=== PATIENT | male | born 1950 | race Caucasian/White ===

== ENCOUNTER 2023-03-16 14:28 | Inpatient (IN) | payer MEDICARE ==
[2023-03-16] MEDS ORDERED: Ondansetron 4 MG/2 ML SDV IV PRN (14:36)
[2023-03-16] MEDS ORDERED: Sennosides/Docusate Sodium 50-8.6 MG Tab PO PRN (14:36)
[2023-03-16] MEDS ORDERED: Sodium Chloride 0.9% 10 ML Syringe FLUSH PRN (14:36)
[2023-03-16 15:01] LABS: BASOPHILS ABSOLUTE AUTO 0.03 K/uL (0.00-0.10); BASOPHILS PERCENT AUTO 0.2 % (0.1-1.3); HEMATOCRIT 40.7 % (38.4-49.7); IMMATURE GRAN ABSOLUTE AUTO 0.06 K/uL (0.00-0.23); IMMATURE GRAN PERCENT AUTO 0.4 % (0.0-0.7); LYMPHOCYTES ABSOLUTE AUTO 0.63 K/uL (0.8-3.3); LYMPHOCYTES PERCENT AUTO 4.7 % (11.4-47.7); MEAN CORPUSCULAR HEMOGLOBIN 31.5 pg (31.6-35.5); MEAN CORPUSCULAR HGB CONC 34.4 g/dL (31.6-35.5); MEAN CORPUSCULAR VOLUME 91.5 fL (81.4-99.0); MONOCYTES ABSOLUTE AUTO 1.15 K/uL (0.20-0.90); MONOCYTES PERCENT AUTO 8.6 % (3.3-12.6); NEUTROPHILS ABSOLUTE AUTO 11.54 K/uL (1.0-7.6); NEUTROPHILS PERCENT AUTO 86.1 % (40.0-78.1); PLATELET COUNT,PLT 215 K/uL (130-375); RED BLOOD CELL COUNT 4.45 M/uL (4.14-5.76); WHITE BLOOD CELL COUNT,WBC 13.4 K/uL (3.2-11.0)
[2023-03-16 15:22] LABS: A/G RATIO 0.9 (1.2-2.2); ALANINE AMINOTRANSFERASE,ALT 21 U/L (12-78); ALBUMIN 3.3 g/dL (3.4-5.0); ALKALINE PHOSPHATASE 84 U/L (46-116); ASPARTATE AMNIOTRANSFERASE,AST 24 U/L (15-37); BILIRUBIN TOTAL 0.7 mg/dL (0.2-1.0); BLOOD UREA NITROGEN,BUN 54 mg/dL (7-18); CALCIUM 8.8 mg/dL (8.5-10.1); CARBON DIOXIDE,CO2 24 mmol/L (21-32); CHLORIDE,CL 97 mmol/L (100-108); ESTIMATED GFR 11 mL/min (>60); GLUCOSE RANDOM 105 mg/dL (74-106); MAGNESIUM 2.4 mg/dL (1.8-2.4); POTASSIUM,K 4.5 mmol/L (3.6-5.2); PROTEIN TOTAL,TP 6.8 g/dL (6.4-8.2); SODIUM,NA 132 mmol/L (140-148)
[2023-03-16 15:25] LABS: ANION GAP 15.5 mmol/L (5.0-14.0)
[2023-03-16 15:26] LABS: CREATININE 5.2 mg/dL (0.8-1.3)
[2023-03-16] MEDS: cefTRIAXone 1 GM in Sodium Chloride 0.9% 50 ML IV SCH (15:54)
[2023-03-16] MEDS: Acetaminophen 325 MG Tab PO PRN ×2 (17:34→21:41)
[2023-03-16] MEDS: Sodium Chloride 0.9% 1,000 ML IV SCH (20:05)
[2023-03-16] MEDS ORDERED: Sodium Chloride 0.9% 500 ML IV ONE (21:35)
[2023-03-16] MEDS: Latanoprost 0.005% Ophth Soln 2.5 ML Bottle EYEBOTH SCH (21:41)
[2023-03-17 04:52] LABS: BASOPHILS ABSOLUTE AUTO 0.04 K/uL (0.00-0.10); BASOPHILS PERCENT AUTO 0.5 % (0.1-1.3); EOSINOPHILS PERCENT AUTO 0.2 % (0.0-5.4); HEMATOCRIT 35.4 % (38.4-49.7); IMMATURE GRAN ABSOLUTE AUTO 0.11 K/uL (0.00-0.23); IMMATURE GRAN PERCENT AUTO 1.3 % (0.0-0.7); LYMPHOCYTES ABSOLUTE AUTO 0.78 K/uL (0.8-3.3); LYMPHOCYTES PERCENT AUTO 9.3 % (11.4-47.7); MEAN CORPUSCULAR HEMOGLOBIN 31.4 pg (31.6-35.5); MEAN CORPUSCULAR HGB CONC 33.9 g/dL (31.6-35.5); MEAN CORPUSCULAR VOLUME 92.7 fL (81.4-99.0); MONOCYTES PERCENT AUTO 10.8 % (3.3-12.6); NEUTROPHILS ABSOLUTE AUTO 6.52 K/uL (1.0-7.6); NEUTROPHILS PERCENT AUTO 77.9 % (40.0-78.1); PLATELET COUNT,PLT 193 K/uL (130-375); RED BLOOD CELL COUNT 3.82 M/uL (4.14-5.76); WHITE BLOOD CELL COUNT,WBC 8.4 K/uL (3.2-11.0)
[2023-03-17 05:11] LABS: EOSINOPHILS ABSOLUTE AUTO 0.02 K/uL (0.00-0.40)
[2023-03-17 05:14] LABS: ANION GAP 10.4 mmol/L (5.0-14.0); EST CRCL DRUG DOSING (CG) 18.88 mL/min; POTASSIUM,K 4.1 mmol/L (3.6-5.2)
[2023-03-17 05:22] LABS: CREATININE 3.6 mg/dL (0.8-1.3)
[2023-03-17] MEDS ORDERED: Sodium Chloride 0.9% 500 ML IV ONE (05:45)
[2023-03-17] MEDS: Sodium Chloride 0.9% 1,000 ML IV SCH ×4 (07:50→20:09)
[2023-03-17] MEDS: Timolol Maleate 0.5% Ophth Soln 5 ML Bottle EYEBOTH SCH (08:37)
[2023-03-17] MEDS ORDERED: Sodium Chloride 0.9% 1,000 ML IV SCH ×3 (12:30→14:30)
[2023-03-17] MEDS: Acetaminophen 325 MG Tab PO PRN ×2 (13:03→20:18)
[2023-03-17] MEDS: Finasteride 5 MG Tab PO SCH (13:04)
[2023-03-17] MEDS: cefTRIAXone 1 GM in Sodium Chloride 0.9% 50 ML IV SCH (16:22)
[2023-03-17] MEDS: Latanoprost 0.005% Ophth Soln 2.5 ML Bottle EYEBOTH SCH (20:17)
[2023-03-17] MEDS: Tamsulosin 0.4 MG Cap.ER PO SCH (20:18)
[2023-03-18] MEDS: Sodium Chloride 0.9% 1,000 ML IV SCH ×2 (02:22→08:31)
[2023-03-18 04:59] LABS: CALCIUM 7.5 mg/dL (8.5-10.1); CREATININE 1.8 mg/dL (0.8-1.3); EST CRCL DRUG DOSING (CG) 37.71 mL/min; POTASSIUM,K 3.6 mmol/L (3.6-5.2)
[2023-03-18 05:16] LABS: ANION GAP 14.6 mmol/L (5.0-14.0)
[2023-03-18] MEDS: Acetaminophen 325 MG Tab PO PRN ×2 (07:11→14:59)
[2023-03-18] MEDS: Timolol Maleate 0.5% Ophth Soln 5 ML Bottle EYEBOTH SCH (08:15)
[2023-03-18] MEDS: Finasteride 5 MG Tab PO SCH (08:16)
[2023-03-18] MEDS ORDERED: Sodium Chloride 0.9% 1,000 ML IV SCH ×3 (10:00→23:30)
[2023-03-18] MEDS ORDERED: Potassium Chloride 20 MEQ Tab.ER PO ONE ×2 (10:30→17:00)
[2023-03-18] MEDS: buPROPion 100 MG Tab PO SCH ×2 (10:50→20:05)
[2023-03-18] MEDS: Latanoprost 0.005% Ophth Soln 2.5 ML Bottle EYEBOTH SCH (20:05)
[2023-03-18] MEDS: Tamsulosin 0.4 MG Cap.ER PO SCH (20:05)
[2023-03-18] MEDS ORDERED: Lisinopril 5 MG Tab PO ONE (23:28)
[2023-03-19] MEDS ORDERED: Sodium Chloride 0.9% 1,000 ML IV SCH (02:30)
[2023-03-19] MEDS: Acetaminophen 325 MG Tab PO PRN ×4 (04:03→22:18)
[2023-03-19 05:30] LABS: CALCIUM 7.5 mg/dL (8.5-10.1); CREATININE 1.3 mg/dL (0.8-1.3); EST CRCL DRUG DOSING (CG) 52.18 mL/min; POTASSIUM,K 3.6 mmol/L (3.6-5.2)
[2023-03-19 05:31] LABS: ANION GAP 14.6 mmol/L (5.0-14.0)
[2023-03-19] MEDS ORDERED: Potassium Chloride 20 MEQ Tab.ER PO ONE (08:20)
[2023-03-19] MEDS: Finasteride 5 MG Tab PO SCH (08:30)
[2023-03-19] MEDS: buPROPion 100 MG Tab PO SCH ×2 (08:30→20:13)
[2023-03-19] MEDS: Timolol Maleate 0.5% Ophth Soln 5 ML Bottle EYEBOTH SCH (08:31)
[2023-03-19] MEDS: Tamsulosin 0.4 MG Cap.ER PO SCH (20:13)
[2023-03-19] MEDS: Latanoprost 0.005% Ophth Soln 2.5 ML Bottle EYEBOTH SCH (20:13)
[2023-03-20] MEDS: Acetaminophen 325 MG Tab PO PRN (05:37)
[2023-03-20 06:04] LABS: ANION GAP 9.2 mmol/L (5.0-14.0); CALCIUM 8.1 mg/dL (8.5-10.1); CREATININE 1.3 mg/dL (0.8-1.3); EST CRCL DRUG DOSING (CG) 52.7 mL/min; POTASSIUM,K 3.9 mmol/L (3.6-5.2)
[2023-03-20] MEDS: Finasteride 5 MG Tab PO SCH (09:18)
[2023-03-20] MEDS: Timolol Maleate 0.5% Ophth Soln 5 ML Bottle EYEBOTH SCH (09:18)
[2023-03-20] MEDS: buPROPion 100 MG Tab PO SCH (09:18)
== END 2023-03-20 11:00 | disposition home or self-care (01) | DRG 690 ==
LOC: JP.MS 14:28
PROVIDERS: ADMIT Hospitalist; ATTEND Hospitalist
DX: N39.0 Urinary tract infection, site not specified (principal); N17.9 Acute kidney failure, unspecified; N40.1 Benign prostatic hyperplasia with lower urinary tract symptoms; N13.8 Other obstructive and reflux uropathy; R97.20 Elevated prostate specific antigen [PSA]; R35.89 Other polyuria; R31.9 Hematuria, unspecified; Z79.82 Long term (current) use of aspirin; Z79.899 Other long term (current) drug therapy; Z20.822 Contact with and (suspected) exposure to COVID-19
CPT/HCPCS: 36415; 51798; 80048; 80053; 83735; 85025; 87086; 99222; 99232; 99238; A9270-GY; J0696; J3490; J7030; J7040; U0002

== ENCOUNTER 2023-12-05 14:30 | Observation (INO) | payer MEDICARE ==
[2023-12-05 15:24] LABS: BASOPHILS ABSOLUTE AUTO 0.03 K/uL (0.00-0.10); BASOPHILS PERCENT AUTO 0.2 % (0.1-1.3); HEMATOCRIT 45.7 % (38.4-49.7); HEMOGLOBIN 15.7 g/dL (12.9-16.9); IMMATURE GRAN ABSOLUTE AUTO 0.04 K/uL (0.00-0.23); IMMATURE GRAN PERCENT AUTO 0.3 % (0.0-0.7); LYMPHOCYTES ABSOLUTE AUTO 0.35 K/uL (0.8-3.3); LYMPHOCYTES PERCENT AUTO 2.8 % (11.4-47.7); MEAN CORPUSCULAR HEMOGLOBIN 30.6 pg (31.6-35.5); MEAN CORPUSCULAR HGB CONC 34.4 g/dL (31.6-35.5); MEAN CORPUSCULAR VOLUME 89.1 fL (81.4-99.0); MONOCYTES ABSOLUTE AUTO 0.86 K/uL (0.20-0.90); MONOCYTES PERCENT AUTO 6.8 % (3.3-12.6); NEUTROPHILS ABSOLUTE AUTO 11.29 K/uL (1.0-7.6); NEUTROPHILS PERCENT AUTO 89.9 % (40.0-78.1); PLATELET COUNT,PLT 279 K/uL (130-375); RED BLOOD CELL COUNT 5.13 M/uL (4.14-5.76); WHITE BLOOD CELL COUNT,WBC 12.6 K/uL (3.2-11.0)
[2023-12-05 15:44] LABS: A/G RATIO 0.9 (1.2-2.2); ALANINE AMINOTRANSFERASE,ALT 20 U/L (12-78); ALBUMIN 3.4 g/dL (3.4-5.0); ALKALINE PHOSPHATASE 123 U/L (46-116); ANION GAP 12.1 mmol/L (5.0-14.0); ASPARTATE AMNIOTRANSFERASE,AST 17 U/L (15-37); BILIRUBIN TOTAL 0.8 mg/dL (0.2-1.0); BLOOD UREA NITROGEN,BUN 25 mg/dL (7-18); CALCIUM 9.7 mg/dL (8.5-10.1); CARBON DIOXIDE,CO2 26 mmol/L (21-32); CHLORIDE,CL 103 mmol/L (100-108); CREATININE 1.3 mg/dL (0.8-1.3); EST CRCL DRUG DOSING (CG) 52.25 mL/min; ESTIMATED GFR 58 mL/min (>60); GLUCOSE RANDOM 182 mg/dL (74-106); PROTEIN TOTAL,TP 7.4 g/dL (6.4-8.2); SODIUM,NA 141 mmol/L (140-148)
[2023-12-05] MEDS: Ondansetron 4 MG/2 ML SDV IVPUSH ONE (16:11)
[2023-12-05] MEDS: Sodium Chloride 0.9% 1,000 ML IV SCH ×2 (16:11→19:46)
[2023-12-05] MEDS: cefTRIAXone 1 GM in Sodium Chloride 0.9% 50 ML IV ONE (16:11)
[2023-12-05 16:23] LABS: COLOR,URINE YELLOW (YELLOW)
[2023-12-05 16:24] LABS: APPEARANCE,URINE SLIGHTLY CLOUDY (CLEAR); GLUCOSE,URINE NEGATIVE (NEGATIVE); KETONES,URINE NEGATIVE (NEGATIVE); PROTEIN,URINE 100 mg/dL (NEGATIVE)
[2023-12-05 16:25] LABS: BILIRUBIN,URINE NEGATIVE (NEGATIVE); LEUKOCYTE ESTERASE,URINE SMALL (NEGATIVE); NITRITE,URINE NEGATIVE (NEGATIVE); OCCULT BLOOD,URINE TRACE-INTACT (NEGATIVE); UROBILINOGEN,URINE 0.2 EU/dL (0.2-1.0)
[2023-12-05] MEDS ORDERED: Naloxone 0.4 MG/ML SDV IVPUSH PRN ×2 (18:35→19:06)
[2023-12-05] MEDS: HYDROmorphone 1 MG/ML Syringe IVPUSH ONE (18:51)
[2023-12-05] MEDS ORDERED: Ondansetron 4 MG Tab.DIS PO PRN (19:06)
[2023-12-05] MEDS ORDERED: LORazepam 2 MG/ML SDV IV PRN (19:06)
[2023-12-05] MEDS ORDERED: diphenhydrAMINE 25 MG Cap PO PRN (19:06)
[2023-12-05] MEDS ORDERED: oxyCODONE 5 MG Tab PO PRN (19:06)
[2023-12-05] MEDS ORDERED: Acetaminophen 325 MG Tab PO PRN (19:06)
[2023-12-05] MEDS: Pantoprazole 40 MG Vial IV ONE (19:43)
[2023-12-05] MEDS ORDERED: Tamsulosin 0.4 MG Cap.ER PO SCH (21:00)
[2023-12-05] MEDS ORDERED: buPROPion 100 MG Tab PO SCH (21:00)
[2023-12-05] MEDS ORDERED: Latanoprost 0.005% Ophth Soln 2.5 ML Bottle EYEBOTH SCH (21:00)
[2023-12-05] MEDS ORDERED: Non-Formulary Medication 1 Each (Latanoprost [Latanoprost] 2.5 ML Drops) EYEBOTH SCH (21:00)
[2023-12-05] MEDS: Latanoprost 0.005% Ophth **OWN MED EYEBOTH SCH (22:03)
[2023-12-05] MEDS: TAMSULOSIN 0.4 MG PO SCH (22:07)
[2023-12-05] MEDS: BUPROPION 100 MG PO SCH (22:07)
[2023-12-06] MEDS: cefTRIAXone 1 GM in Sodium Chloride 0.9% 50 ML IV SCH (03:47)
[2023-12-06 04:47] LABS: BASOPHILS ABSOLUTE AUTO 0.03 K/uL (0.00-0.10); BASOPHILS PERCENT AUTO 0.7 % (0.1-1.3); EOSINOPHILS PERCENT AUTO 0.2 % (0.0-5.4); HEMATOCRIT 37.8 % (38.4-49.7); HEMOGLOBIN 12.6 g/dL (12.9-16.9); IMMATURE GRAN PERCENT AUTO 0.2 % (0.0-0.7); LYMPHOCYTES ABSOLUTE AUTO 0.57 K/uL (0.8-3.3); LYMPHOCYTES PERCENT AUTO 13.6 % (11.4-47.7); MEAN CORPUSCULAR HEMOGLOBIN 30.5 pg (31.6-35.5); MEAN CORPUSCULAR HGB CONC 33.3 g/dL (31.6-35.5); MEAN CORPUSCULAR VOLUME 91.5 fL (81.4-99.0); MONOCYTES ABSOLUTE AUTO 0.68 K/uL (0.20-0.90); MONOCYTES PERCENT AUTO 16.3 % (3.3-12.6); NEUTROPHILS ABSOLUTE AUTO 2.88 K/uL (1.0-7.6); PLATELET COUNT,PLT 225 K/uL (130-375); RED BLOOD CELL COUNT 4.13 M/uL (4.14-5.76); WHITE BLOOD CELL COUNT,WBC 4.2 K/uL (3.2-11.0)
[2023-12-06 05:03] LABS: ANION GAP 7.9 mmol/L (5.0-14.0); CALCIUM 8.6 mg/dL (8.5-10.1); CREATININE 1.1 mg/dL (0.8-1.3); EST CRCL DRUG DOSING (CG) 59.48 mL/min; POTASSIUM,K 3.9 mmol/L (3.6-5.2)
[2023-12-06 05:06] LABS: EOSINOPHILS ABSOLUTE AUTO 0.01 K/uL (0.00-0.40); IMMATURE GRAN ABSOLUTE AUTO 0.01 K/uL (0.00-0.23)
[2023-12-06] MEDS ORDERED: predniSONE 5 MG Tab PO SCH ×2 (09:00)
[2023-12-06] MEDS ORDERED: Lisinopril 20 MG Tab PO SCH (09:00)
[2023-12-06] MEDS ORDERED: Non-Formulary Medication 1 Each (Aspirin [Halfprin] 81 MG Tab.Ec) PO SCH (09:00)
[2023-12-06] MEDS ORDERED: Timolol Maleate 0.5% Ophth Soln 5 ML Bottle EYEBOTH SCH (09:00)
[2023-12-06] MEDS ORDERED: Non-Formulary Medication 1 Each (Simvastatin [Simvastatin] 20 MG Tablet) PO SCH (09:00)
[2023-12-06] MEDS ORDERED: Non-Formulary Medication 1 Each (Timolol Maleate/Pf [Timolol Maleate 0.5% Eye Drop] 1 EACH EYEBOTH SCH (09:00)
[2023-12-06] MEDS ORDERED: PREDNISONE 5 MG PO SCH (09:00)
[2023-12-06] MEDS ORDERED: ABIRATERONE ACETATE 250 MG PO SCH ×2 (09:00)
[2023-12-06] MEDS ORDERED: atorvaSTATin 10 MG Tab PO SCH ×2 (09:00)
[2023-12-06] MEDS ORDERED: Non-Formulary Medication 1 Each (Bupropion [Wellbutrin] 100 MG Tablet) PO SCH (09:00)
[2023-12-06] MEDS ORDERED: Non-Formulary Medication 1 Each (Cholecalciferol (Vitamin D3) [Vitamin D3] 2,000 UNIT Cap) PO SCH (09:00)
[2023-12-06] MEDS: ABIRATERONE 250 MG PO SCH (09:28)
[2023-12-06] MEDS: Aspirin 81 MG Tab.EC PO SCH (10:42)
[2023-12-06] MEDS: Lisinopril 20 MG Tab (PTOM) PO SCH (10:42)
[2023-12-06] MEDS: PREDNISONE 5 MG PO SCH (10:43)
[2023-12-06] MEDS: Cholecalciferol (Vitamin D3) 25 MCG Tab PO SCH (10:44)
[2023-12-06] MEDS: Acetaminophen/oxyCODONE 325-10 MG Tab PO PRN (10:51)
[2023-12-06] MEDS: SIMVASTATIN 20MG TAB (PTOM) PO SCH (18:11)
[2023-12-06] MEDS ORDERED: Non-Formulary Medication 1 Each (Tamsulosin [Flomax] 0.4 MG Cap.Er) PO SCH (21:00)
[2023-12-07] MEDS ORDERED: Midazolam 1 MG/ML 2 ML SDV ONE (07:01)
[2023-12-07] MEDS ORDERED: Propofol 200 MG/20 ML SDV ONE ×4 (07:01→09:35)
[2023-12-07] MEDS ORDERED: fentaNYL 100 MCG/2 ML SDV ONE ×3 (07:01→08:45)
[2023-12-07] MEDS: Lactated Ringers 1,000 ML IV STA (07:12)
[2023-12-07] MEDS: ceFAZolin 1 GM in Premix Bag 1 BAG IV ONE (07:50)
[2023-12-07] MEDS: Bupivacaine 0.5%/EPINEPHrine 1:200,000 50 ML MDV ONE (08:20)
[2023-12-07] MEDS: Lidocaine 1% 50 ML MDV ONE (08:20)
[2023-12-07] MEDS ORDERED: Lactated Ringers 1,000 ML ONE (08:38)
[2023-12-07] MEDS: Morphine 2 MG/ML SYRINGE IVPUSH PRN (11:25)
== END 2023-12-07 14:45 | disposition home or self-care (01) ==
LOC: JP.ED 14:30 → JP.MS 18:44
PROVIDERS: ADMIT Internal Medicine; ATTEND Surgery
DX: K40.20 Bilateral inguinal hernia, without obstruction or gangrene, not specified as recurrent (principal); C61 Malignant neoplasm of prostate
CPT/HCPCS: 36415; 49505; 74176; 80048; 80053; 81003; 85025; 93005; A9270; C1781; C9113; J0690; J0696; J1170; J2001; J2250; J2270; J2405; J2704; J3010; J3490; J7030; J7120; J7512; 93010; 99222; 99285

== ENCOUNTER 2024-02-13 08:24 | Emergency (ER) | payer MEDICARE | END 2024-02-13 09:11 | disposition home or self-care (01) | LOC: JP.ED 08:24 | DX: T83.091A Other mechanical complication of indwelling urethral catheter, initial encounter (principal); N32.0 Bladder-neck obstruction; E78.00 Pure hypercholesterolemia, unspecified; Z79.51 Long term (current) use of inhaled steroids; Z79.82 Long term (current) use of aspirin; Z79.899 Other long term (current) drug therapy; Y73.2 Prosthetic and other implants, materials and accessory gastroenterology and urology devices associated with adverse incidents | CPT/HCPCS: 51702; 99283 ==